=== PATIENT | female | born 1990 | race Caucasian/White ===

== ENCOUNTER 2024-05-03 04:06 | Day surgery (SDC) | payer OTHER, SELFPAY ==
[2024-05-03] VITALS (26 sets, daily range): BP systolic 85–139; BP diastolic 47–97; PULSE 78–104; RESP 12–22; TEMP 36.3–36.7; O2SAT 96–100
[2024-05-03] MEDS: MORPHINE SULFATE (*CRX) 4 MG/ML INJ IV PUSH ×3 (04:18→05:50)
--- NOTE | 2024-05-03 04:20 | PC.NURSE ---
EDP Dr. Farah at bedside assessing pt. OB regulatory affairs director at bedside.
[2024-05-03 04:31] LABS: Basophils Absolute Auto 0.1 K/mm3 (0.0-0.1); Basophils Percent Auto 0.5 % (0.2-1.2); Eosinophils Absolute Auto 0.4 K/mm3 (0-0.3); Eosinophils Percent Auto 3.2 % (0-4.4); Hematocrit 32.2 % (37.0-47.0); Hemoglobin 10.9 g/dL (12.0-15.0); Immature Granulocyte Absolute 0.04 K/mm3 (0.00-0.031); Immature Granulocyte Percent A 0.3 % (0-0.5); Lymphocytes Absolute Auto 2.97 K/mm3 (0.9-3.2); Lymphocytes Percent Auto 23.9 % (18.3-44.2); Mean Corpuscular HGB Conc 33.9 g/dl (32-36); Mean Corpuscular Hemoglobin 31.9 pg (26-34); Mean Corpuscular Volume 94.2 fl (80-100); Mean Platelet Volume 10.1 fl (7.4-10.4); Monocytes Absolute Auto 0.7 K/mm3 (0.1-0.6); Monocytes Percent Auto 5.9 % (2.6-8.5); Neutrophils Absolute Auto 8.2 K/mm3 (1.3-6.7); Neutrophils Percent Auto 66.2 % (45.5-73.1); Platelet Count Result 284 k/mm3 (150-375); Red Blood Count 3.42 M/mm3 (4.2-5.4); Red Cell Distribution Width 14.3 % (11.5-14.5); White Blood Count 12.4 K/mm3 (4.5-10.0)
[2024-05-03 04:39] LABS: Prothrombin Time 13.2 Seconds (11.1-14.7)
[2024-05-03 04:40] LABS: Alanine Aminotransferase 17 U/L (6-35); Albumin Level 3.9 g/dL (3.5-5.1); Alkaline Phosphatase 51 U/L (38-126); Anion Gap 6 mmol/L (4-12); Aspartate Amino Transferase 25 U/L (14-36); Bilirubin,Total 0.3 mg/dL (0.2-1.3); Blood Urea Nitrogen 18 mg/dL (7-17); Calcium 9.3 mg/dL (8.4-10.2); Carbon Dioxide 24 mmol/L (22-30); Chloride 106 mmol/L (98-107); Estimated CRCL calculation 114 ml/min; Estimated Glomerular Filt Rate > 60; Glucose 93 mg/dL (65-110); Partial Thromboplastin Time 26.5 Seconds (22.3-36.8); Potassium 3.7 mmol/L (3.4-5.0); Sodium 136 mmol/L (137-145)
[2024-05-03] MEDS: miSOPROStol 200 MCG TABLET 1000 MCG RECTAL (04:43)
--- NOTE | 2024-05-03 04:48 | ED.PREGNANCY ---
HPI - General Chief complaint: Vaginal Bleeding Stated complaint: and bleeding Time Seen by Provider: 05/03/24 04:14 Source: patient and EMS Mode of arrival: EMS Limitations: no limitations History of Present Illness HPI Narrative: 34 yo G5P _ _ 13 female who presents with vaginal bleeding. Patient had reported being 16 weeks based on a LMP at the beginnign of January. She states she saw her ObGyn Dr Stephenson/ (?) in [place] for this but no ultrasound performed. She has miscarried previously and states she had significant hemorrhage requiring helicopter transfer to a location where a D&C was performed. Denies heavy periods independent of this. Denies being anemic at baseline. Had been spotting all day and states she calls EMS and that's when more significant bleeding began. Associated with abdominal cramping. Requesting that she doesn't want to have another D&C due to a bad experience. Related Data Allergies Allergy/AdvReac Type Severity Reaction Status Date / Time No Known Allergies Allergy Unverified 04/09/24 10:07 [facility], [facility] Past Medical History Medical History (Updated 05/06/24 @ 03:03 by Josselin Farah MD) delivery delivered History of miscarriage with hemorrhage by report Surgical History Surgical History (Updated 05/06/24 @ 02:57 by Josselin Farah MD) History of D&C Family History Family History (Updated 04/09/24 @ 10:09 by Chana Peoples CMA) Father Diabetes mellitus Mother Heart disease Social History Social History (Updated 04/09/24 @ 10:10 by Chana Peoples STUDENT SUCCESS ADVISOR) Smoking status: Current every day smoker Tobacco type: cigarettes Alcohol intake: never Substance use: current Substance use type: marijuana Do You Feel Safe in your Home?: Yes Lack of Transportation: YES Current Housing: I Have Housing Exam Narrative: GENERAL: well-nourished, in acute distress. HEAD: Normocephalic, atraumatic. EYES: Non injected, non icteric ENT: Nares clear, no rhinorrhea or epistaxis. NECK: Supple. CHEST: Speaking in full sentences. No respiratory distress. HEART: Tachycardic rate and rhythm. . ABDOMEN: Soft, nondistended. : Large volume hemorrhage with clot in vagina. CLots removed which have small first trimester fetus as well as large volume toilet paper wadded up mixed in. Scopettes insufficient for bleeding control. Abdominal pressure applied and multiple gauzes used. EXTREMITIES: Normal range of motion. No edema. SKIN: Warm, dry, no rash. NEURO: No focal deficits. Alert and oriented x3. PSYCH: Normal mood and affect. Course Vital Signs Vital signs: Vital Signs Temperature 98.0 F 05/03/24 04:09 Pulse Rate 104 H 05/03/24 04:09 Respiratory Rate 21 H 05/03/24 04:09 Blood Pressure 133/97 H 05/03/24 04:09 Pulse Oximetry 100 05/03/24 04:09 Oxygen Delivery Room Air 05/03/24 04:09 Temperature 97.3 F L 05/03/24 08:02 Pulse Rate 87 05/03/24 11:40 Respiratory Rate 16 05/03/24 09:30 Blood Pressure 119/77 05/03/24 11:40 Pulse Oximetry 100 05/03/24 09:43 Oxygen Delivery Room Air 05/03/24 11:40 Oxygen Flow Rate 8 05/03/24 08:02 MDM - OB/Uterine Contractions MDM Narrative Medical decision making narrative: Patient is a 34 yo G5P _ _ 13 female who presents with vaginal bleeding, significant per EMS. Patient reported being 16 w gestational age by LMP at the beginning of January but care unclear as she states she saw her OBGYN Dr Stephenson/[place] in [place] but no ultrasound has been performed yet. In the ED she is afebrile with VS that show mild tachycardia and tachypnea. BP is acceptable, not hypotensive. Given high risk for deterioration/decompensation and hemodynamic instability, IV access requested x2. Patient provided analgesia. First trimester fetus delivered. Specimen placed into canister and sent for pathology. Bleeding at first improves b
--- NOTE | 2024-05-03 05:03 | PC.NURSE ---
OB plastic technician Amy administered Cytotec and discussed demise options with patient. Pt would like hospital to handle disposition of remains. Form signed and to be sent down to lab with products of conception.
--- NOTE | 2024-05-03 05:16 | PC.NURSE ---
Pt passing copious amount of blood and clots. EDP Dr. Farah called to bedside to assess pt. BP stable and updated in chart.
--- NOTE | 2024-05-03 05:38 | PC.NURSE ---
Pt having continuous contractions and passing copious amounts of blood and clots. This RN at bedside. EDP made aware. BP stable and updated in chart. Pt saturating blue ekta every 15-20 minutes.
--- NOTE | 2024-05-03 05:46 | PC.NURSE ---
EDP Dr. Sofi FULTON 4mg IVP morphine.
--- NOTE | 2024-05-03 05:56 | PC.NURSE ---
blood transfusion consent obtained for OR, placed on chart.
--- NOTE | 2024-05-03 06:30 | PC.NURSE ---
Pt called for help. This RN to room to find patient passed a softball sized clot. Dr Farah notified. No new orders obtained.
--- NOTE | 2024-05-03 06:57 | PM.IMHP ---
H&P: HPI History of Present Illness Date/Time: 05/03/24 06:57 Chief Complaint: vaginal bleeding incomplete Narrative: 34 yo [id number] presents with acute onset vaginal bleeding. Patient in early in . She reports an LMP of 01/10/2024. Patient had not yet had dating/ viability ultrasound. Patient presents to the emergency room passing large clots and tissue. Tissue was evaluated by OB nurse and identified an approximately 6 week size fetus that appeared intact. Patient continues to have bleeding and passing of clots emergency room. Patient states she has had 2 previous miscarriages. Patient states that her last miscarriage she opted for medical management of patient states after taking Cytotec, she had acute onset heavy vaginal bleeding. Patient states she had emergency D&C. She became extremely hypotensive afterwards due to acute blood loss anemia. Patient had to be helicopter to [facility] for management. Patient is a daily tobacco and marijuana user. Review of Systems Cardiovascular: Cardiovascular: Denies chest pain, Denies leg edema, Denies palpitations, Denies dyspnea and Denies dyspnea on exertion Respiratory: Respiratory: Denies cough, Denies dyspnea and Denies dyspnea on exertion Gastrointestinal: Gastrointestinal: Denies abdominal pain, Denies constipation, Denies diarrhea, Denies nausea and Denies vomiting Genitourinary: Genitourinary: Denies hematuria, Denies urinary frequency, Denies dysuria, Denies pelvic pain, Denies urinary incontinence and Denies vaginal discharge Neurologic: Reports system reviewed and no additional complaints, except as documented Psychiatric: Psychiatric: Reports no additional psychiatric complaints Endocrine: Endocrine: Denies palpitations [facility] Past Medical History Medical History (Updated 05/03/24 @ 07:04 by Edd Moise MD) delivery delivered Family History Family History (Updated 04/09/24 @ 10:09 by Chana Peoples CMA) Father Diabetes mellitus Mother Heart disease Social History Social History (Updated 04/09/24 @ 10:10 by Chana Peoples CMA) Smoking status: Current every day smoker Tobacco type: cigarettes Alcohol intake: never Substance use: current Substance use type: marijuana Do You Feel Safe in your Home?: Yes Lack of Transportation: YES Current Housing: I Have Housing Meds Home Medications and Allergies Home Medications Medication Instructions Recorded Confirmed Type No Home Medications 04/09/24 04/09/24 History Allergies Allergy/AdvReac Type Severity Reaction Status Date / Time No Known Allergies Allergy Unverified 04/09/24 10:07 Vital Signs Vital Signs - 24 hr 05/03/24 04:09 05/03/24 04:34 05/03/24 05:02 Temperature 98.0 F Pulse Rate 104 H 101 H 92 Respiratory Rate 21 H 20 22 H Blood Pressure 133/97 H 116/84 112/87 Pulse Oximetry 100 97 100 Oxygen Delivery Room Air 05/03/24 05:17 05/03/24 05:25 05/03/24 05:46 Temperature Pulse Rate 92 92 93 Respiratory Rate 15 18 16 Blood Pressure 125/78 115/86 112/83 Pulse Oximetry 100 99 100 Oxygen Delivery 05/03/24 06:01 05/03/24 06:08 05/03/24 06:16 Temperature Pulse Rate 94 97 103 H Respiratory Rate 14 12 20 Blood Pressure 114/79 120/53 L 117/78 Pulse Oximetry 100 100 98 Oxygen Delivery 05/03/24 06:31 05/03/24 06:46 Temperature Pulse Rate 97 102 H Respiratory Rate 16 21 H Blood Pressure 108/80 108/82 Pulse Oximetry 100 Oxygen Delivery Exam Const: General: no acute distress Eyes: EOM: EOMs intact bilaterally Neck: Neck: supple Thyroid: thyroid normal Chest: Breast/axilla inspection: normal inspection of the breasts Breast/axilla palpation: normal palpation of the breasts, normal palpation of the axillae and no axillary lymphadenopathy Resp: Effort & Inspection: normal respiratory effort Auscultation: clear to auscultation bilatera
--- NOTE | 2024-05-03 07:03 | PC.NURSE ---
Pt called out stating she felt dizzy and wanted to be lied down flat. Pt BP 89/59. EDP made aware. VORB bolus of NS.
[2024-05-03] MEDS: SODIUM CHLORIDE 0.9% IV 1,000 ML 999 ML IV CONT (07:05)
--- NOTE | 2024-05-03 07:14 | WPDHPUPDATE1 ---
History and Physical Update Update Date/Time: 05/03/24 07:14 History and Physical has been reviewed, including an updated exam of the patient. There are NO changes in the patient's condition. Risks, benefits, and alternatives have been discussed and questions answered. Patient agrees to proceed with procedure.
[2024-05-03] MEDS: LIDOCAINE HCL 1% LOCAL INJ 20 ML VIAL INFILTRATE (07:41)
--- NOTE | 2024-05-03 07:57 | W.PM.PROC2 ---
Procedure Note - Detailed Date of Procedure 05/03/24 Pre-op Diagnosis and bleeding Post-op Diagnosis Same Procedure Performed Suction Dilation & curettage Surgeon Edd Moise MD Anesthesia General Indications incomplete acute vaginal bleeding Findings intrauterine products of conception Description of Procedure The patient was taken to the operating room after a missed had been noted on on transvaginal ultrasound. The risks, benefits and alternatives of the procedure were reviewed with the patient and informed consent was obtained. The patient was taken to the OR and anesthesia was noted to be adequate. The patient was placed in the dorsolithotomy position. Pelvic exam was performed with findings noted above. The patient was prepped and draped in the usual sterile fashion. Sterile speculum was placed in the vagina and the cervix was grasped with a tenaculum. 1% lidocaine was injected for a cervical block. The cervix was dilated further to allow for passage of a 8 mm suction curette. The 8 mm suction curette was gently advanced to the fundus, suction was activated, and the tip was rotated while being withdrawn to clear the uterus of products. This suction process was repeated 3 additional times due to the quantity of material in the uterus. The sharp curette was introduced and advanced to the fundus to remove any remaining products. The suction curette was reintroduced one final time to ensure all products had been removed. The entire procedure was performed under bedside US guidance. The tenaculum was removed. Silver nitrate and a single figure of eight suture of 3-0 vicryl were used to obtain hemostasis at the tenaculum site. Instrument, sponge, and sharp counts were correct. Patient tolerated the procedure well and was taken to the recovery room in stable condition. Estimated Blood Loss 300 Drains No Packing No Pathology Yes (products of conception) Complications No immediate complications Condition Stable Disposition PACU [facility] Billing Surgery - Charge Forward: Surgery Billing
[2024-05-03] MEDS: LACTATED RINGERS 1,000 ML 30 ML IV CONT ×2 (08:02)
--- NOTE | 2024-05-03 08:03 | WPDANESEPPF ---
Anes - Initial Pre Proc Eval Procedure: Operation Date: 05/03/24 10:00 Proposed Procedures p Suction Dilatation aAnd Curettage - Edd Moise MD Date/Time: 05/03/24 08:03 Surgeon: Edd Moise MD Pre Op Diagnosis: and bleeding Patient Data Age: 34 Gender: F Height: 1.7 m Weight: 95.4 kg Last Vital Signs Temp 98.1 F 05/03/24 07:32 Pulse 95 05/03/24 07:32 Resp 14 05/03/24 07:32 BP 103/47 L 05/03/24 07:32 Pulse Ox 100 05/03/24 07:32 O2 Del Method Room Air 05/03/24 07:32 Allergies Allergy/AdvReac Type Severity Reaction Status Date / Time No Known Allergies Allergy Unverified 04/09/24 10:07 Home Medications Medication Instructions Recorded Confirmed Type No Home Medications 04/09/24 04/09/24 History Laboratory Tests 05/03/24 04:24 WBC 12.4 H K/mm3 (4.5-10.0) RBC 3.42 L M/mm3 (4.2-5.4) Hgb 10.9 L g/dL (12.0-15.0) Hct 32.2 L % (37.0-47.0) MCV 94.2 fl (80-100) MCH 31.9 pg (26-34) MCHC 33.9 g/dl (32-36) RDW 14.3 % (11.5-14.5) Plt Count 284 k/mm3 (150-375) MPV 10.1 fl (7.4-10.4) Immature Gran % (Auto) 0.3 % (0-0.5) Neut % (Auto) 66.2 % (45.5-73.1) Lymph % (Auto) 23.9 % (18.3-44.2) [place] % (Auto) 5.9 % (2.6-8.5) Eos % (Auto) 3.2 % (0-4.4) Baso % (Auto) 0.5 % (0.2-1.2) Lymph # (Auto) 2.97 K/mm3 (0.9-3.2) [place] # (Auto) 0.7 H K/mm3 (0.1-0.6) Eos # (Auto) 0.4 H K/mm3 (0-0.3) Baso # (Auto) 0.1 K/mm3 (0.0-0.1) Abs Immat Gran (auto) 0.04 H K/mm3 (0.00-0.031) Absolute Neuts (auto) 8.2 H K/mm3 (1.3-6.7) Absolute Nucleated RBC 0.000 K/mm3 (0.0-0.012) Nucleated RBC % 0.0 % (0.0-0.2) PT 13.2 Seconds (11.1-14.7) INR 1.0 APTT 26.5 Seconds (22.3-36.8) Sodium 136 L mmol/L (137-145) Potassium 3.7 mmol/L (3.4-5.0) Chloride 106 mmol/L (98-107) Carbon Dioxide 24 mmol/L (22-30) Anion Gap 6 mmol/L (4-12) BUN 18 H mg/dL (7-17) Creatinine 0.70 mg/dL (0.7-1.0) Estim Creat Clear Calc 114 ml/min Estimated GFR > 60 (59 - ) Glucose 93 mg/dL (65-110) Calcium 9.3 mg/dL (8.4-10.2) Total Bilirubin 0.3 mg/dL (0.2-1.3) AST 25 U/L (14-36) ALT 17 U/L (6-35) Alkaline Phosphatase 51 U/L (38-126) Total Protein 7.0 g/dL (6.3-8.2) Albumin 3.9 g/dL (3.5-5.1) Beta HCG, Quant 2011.40 mIU/ML Blood Type A Positive Antibody Screen Negative Screen TNP Doses of RhIg Required 0 Patient hx anesthesia problems: none Family hx anesthesia problems: none Results Review: All pre-operative results and documents have been reviewed as part of the pre-operative evaluation. [facility] Past Medical History Medical History (Updated 05/03/24 @ 07:04 by Edd Moise MD) delivery delivered Family History Family History (Updated 04/09/24 @ 10:09 by Chana Peoples CMA) Father Diabetes mellitus Mother Heart disease Social History Social History (Updated 04/09/24 @ 10:10 by Chana Peoples DIESEL TRUCK TECHNICIAN) Smoking status: Current every day smoker Tobacco type: cigarettes Alcohol intake: never Substance use: current Substance use type: marijuana Do You Feel Safe in your Home?: Yes Lack of Transportation: YES Current Housing: I Have Housing [facility] Final PreProcedure Day of Procedure 05/03/24 08:03 Patient weight: obese Heart: regular rate and rhythm Lungs: clear to auscultation Airway: Mallampati scale class II Neurological: alert and oriented Last oral intake: >/= 8 hours ASA classification: III Emergent: no Anesthetic plan: proceed Anesthesia type and monitoring: general GIVS and standard monitoring Results Review: All pre-operative results and documents have been reviewed as part of the pre-operative evaluation. Informed Consent: The chanell
[2024-05-03] MEDS: SODIUM CHLORIDE 0.9% IV 1,000 ML 30 ML IV CONT (08:15)
[2024-05-03] MEDS: DOXYCYCLINE HYCLATE 100 MG TABLET 200 MG PO (10:07)
[2024-05-03 11:15] LABS: Hematocrit 28.5 % (37.0-47.0); Hemoglobin 9.4 g/dL (12.0-15.0)
--- NOTE | 2024-05-03 11:34 | SUR.PHASEII ---
Spoke w/ Dr. Moise and reported drainage on peripad and repeat H&H results. He was fine with discharging the patient home.
--- NOTE | 2024-05-03 11:47 | SUR.PHASEII ---
Vitals are stable. Patient is unhooked from the monitors and waiting for ride.
--- NOTE | 2024-05-03 12:04 | SUR.PHASEII ---
1017: RN went through exchange to notify Dr. Moise of drainage on peripad and clarify if he wanted a repeat H&H. He said to monitor the patient a little longer and get the repeat H&H and notify him on his cell with the results.
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
== END 2024-05-03 14:02 | disposition home or self-care (01) ==
LOC: ANHED 06:01 → ANHSURGERY 06:05
PROVIDERS: Emergency Provider Student in an Organized Health Care Education/Training Program; Visit Provider Student in an Organized Health Care Education/Training Program
PROC: (CPT 59812; principal; 2024-05-03 10:00)
DX: O03.4 Incomplete spontaneous abortion without complication (principal); F12.90 Cannabis use, unspecified, uncomplicated; F17.210 Nicotine dependence, cigarettes, uncomplicated
CPT/HCPCS: 59812; 36415; 80053; 84702; 85014; 85018; 85025; 85461; 85610; 85730; 86850; 86900; 86901; 88305; 88307; 96374; 96376; 99285; A9270; J1100; J2250; J2270; J2405; J2704; J3010; J7030; J7120